=== PATIENT | female | born 2000 | race Caucasian/White ===

== ENCOUNTER 2022-04-11 16:25 | Emergency (ER) | payer OTHER, SELFPAY ==
[2022-04-11 16:37] VITALS: BP 138/85; PULSE 103; RESP 16; TEMP 37.2; O2SAT 99
--- NOTE | 2022-04-11 16:54 | ED.FEMALEGU ---
HPI - Female Genitourinary General Chief complaint: Urogenital-Female Stated complaint: poss uti Time Seen by Provider: 04/11/22 16:50 Source: patient and RN notes reviewed Mode of arrival: ambulatory Limitations: no limitations History of Present Illness HPI Narrative: 21-year-old female presented for complaint of urinary frequency and mild suprapubic pressure for about 3 days. Endorses frequent UTIs, stating she had about 5 this year. Endorses they occur after her menstrual cycle. She denies hematuria, abdominal pain, nausea, vomiting, flank pain, fevers or chills. She denies concern for STD. Related Data Home Medications Medication Instructions Recorded Confirmed duloxetine 30 mg capsule,delayed 2 cap PO DAILY 04/11/22 04/11/22 release norgestimate 0.25 mg-ethinyl 1 tablet PO DAILY 04/11/22 04/11/22 estradiol 35 mcg tablet (Estarylla) pantoprazole 40 mg tablet,delayed 1 tablet PO DAILY 04/11/22 04/11/22 release Allergies Allergy/AdvReac Type Severity Reaction Status Date / Time No Known Allergies Allergy Verified 04/11/22 16:48 Review of Systems Review of Systems: CONSTITUTIONAL: Denies body aches, fever, chills, or sweats. CARDIOVASCULAR: Denies chest pain, palpitations, or edema. RESPIRATORY: Denies cough or dyspnea. GASTROINTESTINAL: Denies abdominal pain, nausea, vomiting, or diarrhea. GENITOURINARY: Reports frequency, denies urgency, hematuria, flank pain SKIN: Denies rash, itching, or wounds. MUSCULOSKELETAL: Denies back pain or myalgia. PMFSH Comments At time of signature, I have reviewed and agree with nursing past medical, surgical, social and family history unless otherwise noted. Please see nursing chart for further information. There is no relevant family history pertinent to the presenting complaint Exam Narrative: GENERAL: Well-appearing and in no acute distress. NECK: Normal AROM. Supple. CHEST: No respiratory distress. Clear to auscultation. HEART: Regular rate and rhythm. ABDOMEN: Soft, nontender, nondistended, normal active bowel sounds. No CVA tenderness MUSCULOSKELETAL: No bony tenderness. Course Course Emergency Course: Patient is aware of diagnosis, understands and agrees to treatment plan. Anticipatory guidance given. Patient agrees to follow-up as directed and is aware of reasons to seek care at the emergency department. Portions of this record may have been created with voice recognition software Level of Care: Express Care Visit Vital Signs Vital signs: Vital Signs Temperature 99 F 04/11/22 16:37 Pulse Rate 103 H 04/11/22 16:37 Respiratory Rate 16 04/11/22 16:37 Blood Pressure 138/85 04/11/22 16:37 Pulse Oximetry 99 04/11/22 16:37 Oxygen Delivery Room Air 04/11/22 16:37 Temperature 99 F 04/11/22 16:37 Pulse Rate 103 H 04/11/22 16:37 Respiratory Rate 16 04/11/22 16:37 Blood Pressure 138/85 04/11/22 16:37 Pulse Oximetry 99 04/11/22 16:37 Oxygen Delivery Room Air 04/11/22 16:37 Reviewed MDM - Female Genitourinary MDM Narrative Medical decision making narrative: UA reviewed with patient, she is agreeable to hold off on antibiotics until culture returns. She is advised to follow-up with her [employer] regarding the frequency of UTIs occurring after her menstrual cycle. We discussed options of feminine hygiene products to avoid using pads. She is stable and appropriate for outpatient treatment and follow-up. Lab Data Labs: Urine Glucose Negative Reference Range: Negative Urine Glucose Negative Reference Range: Negative Urine Bilirubin Negative Reference Range: Negative Urine Bilirubin Negative Reference Range: Negative Urine Ketone
== END 2022-04-11 17:05 | disposition home or self-care (01) ==
PROVIDERS: Emergency Provider Nurse Practitioner Family
DX: R35.0 Frequency of micturition (principal); K21.9 Gastro-esophageal reflux disease without esophagitis; M79.7 Fibromyalgia
CPT/HCPCS: 81003; 87086; 99213; G0463